=== PATIENT | female | born 1970 | race Caucasian/White ===

== ENCOUNTER 2020-06-20 08:46 | Observation (INO) ==
[2020-06-20] MEDS ORDERED: Ondansetron 4 MG/2 ML VIAL IVP PRN (12:54)
[2020-06-20] MEDS ORDERED: Naloxone 0.4 MG/ML INJ IVP PRN (12:54)
[2020-06-20] MEDS ORDERED: Acetaminophen 325 MG TABLET PO PRN (12:54)
[2020-06-20] MEDS ORDERED: *HR* Heparin 5,000 UNIT/ML VIAL IVP PRN ×2 (12:56)
[2020-06-20] MEDS ORDERED: Dextrose Gel 15 GM/37.5 ML TUBE PO PRN ×2 (12:57)
[2020-06-20] MEDS ORDERED: Perflutren Lipid Microsphere 1.3 ML in 0.9 % Sodium Chloride 8.7 ML IVP PRN (12:57)
[2020-06-20] MEDS ORDERED: *HR* Dextrose 50 % in Water (Vial) 50 ML VIAL IVP PRN (12:57)
[2020-06-20] MEDS ORDERED: D5% in Water 1,000 ML IVC PRN (12:57)
[2020-06-20] MEDS ORDERED: Ipratropium/Albuterol Neb 3 ML IH PRN (12:58)
[2020-06-20] MEDS ORDERED: Nitroglycerin 0.4 MG TAB.SUBL SL PRN (13:10)
[2020-06-20 13:40] LABS: Basophils # 0.1 K/mcL (0.0-0.2); Basophils % 0.7 %; Eosinophils # 0.1 K/mcL (0.0-0.6); Eosinophils % 0.8 %; Hemoglobin 11.2 g/dL (11.5-15.4); Immature Granulocytes % 0.2 % (0-4); Lymphocytes # 2.7 K/mcL (0.6-4.6); Lymphocytes % 31.2 %; Mean Corpuscular Hemoglobin 27.9 pg (28.0-33.3); Mean Corpuscular Volume 87.1 fL (83.0-100.0); Mean Platelet Volume 10.3 fL (9.4-12.4); Monocytes # 0.5 K/mcL (0.0-1.3); Monocytes % 5.5 %; Neutrophils # 5.4 K/mcL (1.6-8.9); Platelet Count 314 K/mcL (140-400); Red Blood Count 4.02 M/mcL (3.82-4.97); Red Cell Distribution Width 13.6 % (11.5-14.5); Segmented Neutrophils % 61.6 %; White Blood Count 8.7 K/mcL (4.3-11.1)
[2020-06-20] MEDS: Heparin 25,000UNIT/250ML 1/2NS 25,000 UNIT/250 ML IV.SOLN IVC SCH (13:54)
[2020-06-20] MEDS: Doxycycline 100 MG CAPSULE PO SCH ×2 (13:54→20:16)
[2020-06-20] MEDS: Metoprolol XL (24 HR) Succ 25 MG TAB.ER.24H PO SCH (13:54)
[2020-06-20] MEDS: Gabapentin 100 MG CAPSULE PO SCH ×2 (13:55→20:17)
[2020-06-20 14:01] LABS: Albumin 3.5 g/dL (3.5-5.7); Albumin/Globulin Ratio 1.2 (1.1-2.2); Bilirubin,Total 0.2 mg/dL (0.3-1.0); Calcium 8.8 mg/dL (8.6-10.3); Potassium 3.7 mEq/L (3.5-5.1); Total Protein 6.5 g/dL (6.4-8.9)
[2020-06-20 14:07] LABS: Troponin I 0.74 ng/mL (< 0.04)
[2020-06-20] MEDS: Insulin LISPRO 300 UNITS/3 ML VIAL SUBQ SCH (16:59)
[2020-06-20] MEDS: Furosemide 20 MG/2 ML VIAL IVP SCH (20:14)
[2020-06-20] MEDS: Insulin DETEMIR 100 UNIT/ML X5UNITS SUBQ SCH (20:19)
[2020-06-20] MEDS ORDERED: rOPINIRole 1 MG TABLET PO SCH (21:00)
[2020-06-21 03:38] LABS: Hematocrit 34.6 % (35.3-44.9); Hemoglobin 11.1 g/dL (11.5-15.4); Mean Corpuscular HGB Conc 32.1 g/dL (31.6-35.5); Mean Corpuscular Hemoglobin 28.1 pg (28.0-33.3); Mean Corpuscular Volume 87.6 fL (83.0-100.0); Mean Platelet Volume 10.2 fL (9.4-12.4); Platelet Count 304 K/mcL (140-400); Red Blood Count 3.95 M/mcL (3.82-4.97); Red Cell Distribution Width 13.6 % (11.5-14.5); White Blood Count 9.6 K/mcL (4.3-11.1)
[2020-06-21 04:00] LABS: BUN/Creatinine Ratio 21 (6-26); Blood Urea Nitrogen 23 mg/dL (6-20); Carbon Dioxide 27 mEq/L (23-29); Chloride 106 mEq/L (98-107); Chol/HDL Ratio 5.4 (0-4.9); Cholesterol 162 mg/dL (< 200); Glucose 141 mg/dL (70-105); HDL Cholesterol 30 mg/dL (40-59); LDL Cholesterol,Calculated 73 mg/dL (< 100); Magnesium 1.5 mg/dL (1.6-2.6); Osmolality,Calculated 296 (280-300); Phosphorous 3.8 mg/dL (2.7-4.5); Potassium 3.4 mEq/L (3.5-5.1); Sodium 140 mEq/L (136-145); Triglycerides 293 mg/dL (< 150); eGFR For African Americans > 60 (> 60); eGFR For Non-African Americans 52 (> 60)
[2020-06-21] MEDS: Insulin LISPRO 300 UNITS/3 ML VIAL SUBQ SCH ×3 (07:18→16:25)
[2020-06-21] MEDS: amLODIPine 5 MG TABLET PO SCH (09:47)
[2020-06-21] MEDS: Gabapentin 100 MG CAPSULE PO SCH (09:47)
[2020-06-21] MEDS: Furosemide 20 MG/2 ML VIAL IVP SCH ×2 (09:47→22:33)
[2020-06-21] MEDS: Doxycycline 100 MG CAPSULE PO SCH ×2 (09:47→22:33)
[2020-06-21] MEDS: Insulin DETEMIR 100 UNIT/ML X5UNITS SUBQ SCH ×2 (09:47→22:33)
[2020-06-21] MEDS: Heparin 25,000UNIT/250ML 1/2NS 25,000 UNIT/250 ML IV.SOLN IVC SCH (09:47)
[2020-06-21] MEDS: Aspirin Enteric Coated 81 MG Tablet PO SCH (09:47)
[2020-06-21] MEDS: Venlafaxine XR (24 HR) 75 MG CAP.ER.24H PO SCH (09:47)
[2020-06-21] MEDS: Metoprolol XL (24 HR) Succ 25 MG TAB.ER.24H PO SCH (09:47)
[2020-06-21] MEDS: Nicotine 21 MG PATCH.TD24 TD SCH (17:01)
[2020-06-21] MEDS: Pregabalin 75 MG CAPSULE PO SCH (22:33)
[2020-06-22] MEDS: Heparin 25,000UNIT/250ML 1/2NS 25,000 UNIT/250 ML IV.SOLN IVC SCH (06:02)
[2020-06-22] MEDS: Venlafaxine XR (24 HR) 75 MG CAP.ER.24H PO SCH (08:45)
[2020-06-22] MEDS: Pregabalin 75 MG CAPSULE PO SCH (08:45)
[2020-06-22] MEDS: Aspirin Enteric Coated 81 MG Tablet PO SCH (08:45)
[2020-06-22] MEDS: Nicotine 21 MG PATCH.TD24 TD SCH (08:45)
[2020-06-22] MEDS: Furosemide 20 MG/2 ML VIAL IVP SCH (08:46)
[2020-06-22] MEDS: amLODIPine 5 MG TABLET PO SCH (08:46)
[2020-06-22] MEDS: Doxycycline 100 MG CAPSULE PO SCH (08:46)
[2020-06-22] MEDS: Insulin DETEMIR 100 UNIT/ML X5UNITS SUBQ SCH (08:46)
[2020-06-22] MEDS: Metoprolol XL (24 HR) Succ 25 MG TAB.ER.24H PO SCH (08:46)
[2020-06-22] MEDS: Insulin LISPRO 300 UNITS/3 ML VIAL SUBQ SCH (08:47)
[2020-06-22 10:55] VITALS: BP 148/88
== END 2020-06-22 12:14 | disposition home or self-care (01) ==
LOC: 2ANU
PROVIDERS: ADMIT Internal Medicine; ATTEND Internal Medicine